=== PATIENT | female | born 1995 | race Caucasian/White ===

== ENCOUNTER → 2019-10-25 17:20 | Observation (INO) ==
[2019-10-25 15:56] LABS: Bilirubin,Urine Negative (Negative); Blood,Urine Moderate (Negative); Clarity,Urine Clear (Clear); Color,Urine Yellow (Yellow); Glucose,Urine (UA) Normal (Normal); Ketones,Urine 40 mg/dL (Negative); Leukocyte Esterase,Urine Negative (Negative); Nitrite,Urine Negative (Negative); Protein,Urine Negative (Neg-Trace); Specific Gravity,Urine 1.019 (1.010-1.025); Urobilinogen,Urine Normal (Normal)
[2019-10-25 15:59] LABS: Bacteria,Urine None Seen per hpf (None-Few); Hyaline Casts,Urine None Seen per lpf (None-Few); Squamous Epithelial Cell,Urine Moderate per lpf (None-Few); WBC,Urine 0-3 per hpf (0-3)
[2019-10-25 16:31] LABS: Candida DNA DETECTED (Not Detect); Gardnerella DNA Not Detected (Not Detect); Trichomonas DNA Not Detected (Not Detect)
== END | disposition home or self-care (01) ==
LOC: 1NENULAB
PROVIDERS: ADMIT Obstetrics & Gynecology; ATTEND Obstetrics & Gynecology

== ENCOUNTER → 2020-04-20 18:15 | Observation (INO) | END | disposition home or self-care (01) | LOC: 1NENULAB | PROVIDERS: ADMIT Obstetrics & Gynecology; ATTEND Obstetrics & Gynecology ==

== ENCOUNTER 2020-04-27 04:00 | Inpatient (IN) ==
[2020-04-27] MEDS ORDERED: miSOPROStoL 25 MCG TABLET VG PRN (04:13)
[2020-04-27] MEDS ORDERED: Ondansetron 4 MG/2 ML VIAL IVP PRN (04:13)
[2020-04-27] MEDS ORDERED: Lidocaine 1% 20 ML MDV INFILT PRN (04:13)
[2020-04-27] MEDS ORDERED: Famotidine 20 MG/2 ML VIAL IVP PRN (04:13)
[2020-04-27] MEDS ORDERED: Metoclopramide 10 MG/2 ML VIAL IVP PRN (04:13)
[2020-04-27] MEDS ORDERED: Naloxone 0.4 MG/ML INJ IVP PRN (04:13)
[2020-04-27] MEDS ORDERED: *HR* FentaNYL (PF) 100 MCG/2 ML VIAL IVP PRN (04:13)
[2020-04-27] MEDS ORDERED: EPHEDrine 50 MG/ML VIAL IVP PRN (04:51)
[2020-04-27 04:58] LABS: Basophils # 0.1 K/mcL (0.0-0.2); Basophils % 0.7 %; Eosinophils # 0.3 K/mcL (0.0-0.6); Eosinophils % 2.9 %; Hematocrit 36.7 % (35.3-44.9); Hemoglobin 12.5 g/dL (11.5-15.4); Immature Granulocytes % 0.5 % (0-4); Lymphocytes # 3.2 K/mcL (0.6-4.6); Lymphocytes % 31.3 %; Mean Corpuscular HGB Conc 34.1 g/dL (31.6-35.5); Mean Platelet Volume 10.5 fL (9.4-12.4); Monocytes # 0.8 K/mcL (0.0-1.3); Monocytes % 7.9 %; Neutrophils # 5.8 K/mcL (1.6-8.9); Platelet Count 195 K/mcL (140-400); Red Blood Count 4.17 M/mcL (3.82-4.97); Red Cell Distribution Width 12.4 % (11.5-14.5); Segmented Neutrophils % 56.7 %; White Blood Count 10.2 K/mcL (4.3-11.1)
[2020-04-27] MEDS ORDERED: Epidural Premix (fent/bupiv) 110 ML EP SCH (05:00)
[2020-04-27 05:04] LABS: Amphetamine Screen,Urine Negative ng/mL (Cutoff=1000); Barbiturate Screen,Urine Negative ng/mL (Cutoff=200); Benzodiazepines Screen,Urine Negative ng/mL (Cutoff=200); Cannabinoid Screen,Urine Negative ng/mL (Cutoff = 50); Cocaine Screen,Urine Negative ng/mL (Cutoff= 300); Opiate Screen,Urine Negative ng/mL (Cutoff=300); Phencyclidine Screen,Urine Negative ng/mL (Cutoff=25)
[2020-04-27] MEDS ORDERED: Oxytocin 20 units/ LR 1000 mL 20 UNIT/1,000 ML BAG IVC SCH ×2 (09:30→21:09)
[2020-04-27] MEDS: Ringers Solution, Lactated 1,000 ML IVC SCH ×2 (09:40→12:42)
[2020-04-27] MEDS ORDERED: Ropivacaine/PF 0.2% 20 ML VIAL EP ONE (11:57)
[2020-04-27] MEDS ORDERED: *HR* FentaNYL (PF) 100 MCG/2 ML VIAL EP ONE (11:57)
[2020-04-27] MEDS ORDERED: Bupivacaine-MPF 0.25% 10 ML VIAL ONE (12:51)
[2020-04-27] MEDS ORDERED: Acetaminophen 325 MG TABLET PO PRN (21:09)
[2020-04-27] MEDS ORDERED: Measles/Mumps/Rubella Vacc 0.5 ML VIAL SQ PRN (21:09)
[2020-04-27] MEDS: Ibuprofen 600 MG TABLET PO PRN (21:35)
[2020-04-28] MEDS: Ibuprofen 600 MG TABLET PO PRN (08:12)
[2020-04-28 08:25] LABS: Basophils # 0.1 K/mcL (0.0-0.2); Basophils % 0.4 %; Eosinophils # 0.1 K/mcL (0.0-0.6); Eosinophils % 0.6 %; Hemoglobin 11.9 g/dL (11.5-15.4); Immature Granulocytes % 0.5 % (0-4); Lymphocytes % 14.4 %; Mean Corpuscular Hemoglobin 30.6 pg (28.0-33.3); Mean Platelet Volume 10.6 fL (9.4-12.4); Monocytes % 6.9 %; Neutrophils # 10.8 K/mcL (1.6-8.9); Platelet Count 171 K/mcL (140-400); Red Blood Count 3.89 M/mcL (3.82-4.97); Red Cell Distribution Width 12.4 % (11.5-14.5); Segmented Neutrophils % 77.2 %
[2020-04-28] MEDS ORDERED: Prenatal Vit/FA 1 EACH TABLET PO SCH (09:00)
[2020-04-28] MEDS ORDERED: [UNRECOGNIZED DRUG - OTHER] PO SCH (09:00)
[2020-04-28 15:54] VITALS: BP 94/54
== END 2020-04-28 19:00 | disposition home or self-care (01) | DRG 807 ==
LOC: 1NENULAB 04:11 → 1NENUOBS 20:50
PROVIDERS: ADMIT Obstetrics & Gynecology; ATTEND Obstetrics & Gynecology

== ENCOUNTER 2021-09-26 04:00 | Inpatient (IN) ==
[2021-09-26] MEDS ORDERED: Metoclopramide 10 MG/2 ML VIAL IVP PRN (04:08)
[2021-09-26] MEDS ORDERED: Famotidine 20 MG/2 ML VIAL IVP PRN (04:08)
[2021-09-26] MEDS ORDERED: Naloxone 0.4 MG/ML INJ IVP PRN (04:08)
[2021-09-26] MEDS ORDERED: Oxytocin 20 units/ LR 1000 mL 20 UNIT/1,000 ML BAG IVC SCH (04:15)
[2021-09-26] MEDS ORDERED: Ringers Solution, Lactated 1,000 ML IVC SCH (04:15)
[2021-09-26 04:55] LABS: Amphetamine Screen,Urine Negative ng/mL (Cutoff=1000); Barbiturate Screen,Urine Negative ng/mL (Cutoff=200); Benzodiazepines Screen,Urine Negative ng/mL (Cutoff=200); Cannabinoid Screen,Urine Negative ng/mL (Cutoff = 50); Cocaine Screen,Urine Negative ng/mL (Cutoff= 300); Opiate Screen,Urine Negative ng/mL (Cutoff=300); Phencyclidine Screen,Urine Negative ng/mL (Cutoff=25)
[2021-09-26 04:58] VITALS: BP 125/79; PULSE 96; TEMP 98
[2021-09-26 05:01] LABS: Basophils # 0.1 K/mcL (0.0-0.2); Basophils % 0.6 %; Eosinophils # 0.2 K/mcL (0.0-0.6); Eosinophils % 1.6 %; Hematocrit 36.4 % (35.3-44.9); Hemoglobin 11.7 g/dL (11.5-15.4); Immature Granulocytes % 0.5 % (0-4); Lymphocytes # 3.9 K/mcL (0.6-4.6); Lymphocytes % 35.7 %; Mean Corpuscular HGB Conc 32.1 g/dL (31.6-35.5); Mean Corpuscular Hemoglobin 26.3 pg (28.0-33.3); Mean Corpuscular Volume 81.8 fL (83.0-100.0); Mean Platelet Volume 10.3 fL (9.4-12.4); Monocytes # 0.7 K/mcL (0.0-1.3); Monocytes % 6.7 %; Platelet Count 273 K/mcL (140-400); Red Blood Count 4.45 M/mcL (3.82-4.97); Red Cell Distribution Width 12.9 % (11.5-14.5); Segmented Neutrophils % 54.9 %
[2021-09-26 05:17] LABS: Influenza A PCR Negative (Negative); Influenza B PCR Negative (Negative); Resp. Syncytial Virus PCR Negative (Negative)
[2021-09-26 05:19] LABS: SARS-CoV-2 by PCR (In House) Positive (Negative)
== END 2021-09-26 05:36 | disposition other institution (70) | DRG 179 ==
LOC: 1NENULAB 04:00
PROVIDERS: ADMIT Obstetrics & Gynecology; ATTEND Obstetrics & Gynecology

== ENCOUNTER 2021-09-26 15:45 | Inpatient (IN) ==
[2021-09-26] MEDS ORDERED: *HR* Nalbuphine 10 MG/ML AMPUL IV PRN (17:00)
[2021-09-26] MEDS ORDERED: Famotidine 20 MG/2 ML VIAL IVP PRN (17:00)
[2021-09-26] MEDS ORDERED: Metoclopramide 10 MG/2 ML VIAL IVP PRN (17:00)
[2021-09-26] MEDS ORDERED: Naloxone 0.4 MG/ML INJ IVP PRN (17:00)
[2021-09-26] MEDS ORDERED: Ringers Solution, Lactated 1,000 ML IVC SCH (17:00)
[2021-09-26] MEDS ORDERED: EPHEDrine 50 MG/ML VIAL IVP PRN (17:07)
[2021-09-26] MEDS ORDERED: Epidural Premix (fent/bupiv) 110 ML EP SCH (17:15)
[2021-09-26] MEDS ORDERED: miSOPROStoL 25 MCG TABLET PO PRN (17:47)
[2021-09-26 17:58] LABS: Amphetamine Screen,Urine Negative ng/mL (Cutoff=1000); Barbiturate Screen,Urine Negative ng/mL (Cutoff=200); Benzodiazepines Screen,Urine Negative ng/mL (Cutoff=200); Cannabinoid Screen,Urine Negative ng/mL (Cutoff = 50); Cocaine Screen,Urine Negative ng/mL (Cutoff= 300); Opiate Screen,Urine Negative ng/mL (Cutoff=300); Phencyclidine Screen,Urine Negative ng/mL (Cutoff=25)
[2021-09-26] MEDS ORDERED: Oxytocin 20 units/ LR 1000 mL 20 UNIT/1,000 ML BAG IVC SCH (18:00)
[2021-09-27] MEDS ORDERED: Measles/Mumps/Rubella Vacc 0.5 ML VIAL SQ PRN (06:06)
[2021-09-27] MEDS ORDERED: Lanolin 7 G OINT...G. TP PRN (06:06)
[2021-09-27] MEDS ORDERED: Ondansetron ODT 4 MG TAB.RAPDIS SL PRN (06:06)
[2021-09-27] MEDS ORDERED: Oxytocin 20 units/ LR 1000 mL 20 UNIT/1,000 ML BAG IVC SCH (06:06)
[2021-09-27] MEDS ORDERED: Benzocaine/Menthol 56 GM AEROSOL SPRAY TP PRN (06:06)
[2021-09-27] MEDS: Ibuprofen 600 MG TABLET PO SCH ×2 (06:29→18:05)
[2021-09-27] MEDS: Prenatal Vit/FA 1 EACH TABLET PO SCH (07:50)
[2021-09-27] MEDS: Acetaminophen 325 MG TABLET PO SCH ×2 (07:50→18:04)
[2021-09-27] MEDS ORDERED: NON-FORMULARY MEDICATION 1 EACH EACH (Prenatal Vit/Fa [Prenatal Vit/Fa] 1 EACH Tablet) PO SCH (09:00)
[2021-09-28] MEDS: Acetaminophen 325 MG TABLET PO SCH (02:02)
[2021-09-28] MEDS: Ibuprofen 600 MG TABLET PO SCH (02:02)
[2021-09-28 04:13] LABS: Basophils # 0.1 K/mcL (0.0-0.2); Basophils % 0.4 %; Eosinophils # 0.1 K/mcL (0.0-0.6); Hematocrit 34.3 % (35.3-44.9); Hemoglobin 10.8 g/dL (11.5-15.4); Immature Granulocytes % 0.6 % (0-4); Lymphocytes # 3.9 K/mcL (0.6-4.6); Lymphocytes % 31.1 %; Mean Corpuscular HGB Conc 31.5 g/dL (31.6-35.5); Mean Corpuscular Volume 82.7 fL (83.0-100.0); Mean Platelet Volume 10.1 fL (9.4-12.4); Monocytes # 0.7 K/mcL (0.0-1.3); Monocytes % 5.7 %; Neutrophils # 7.6 K/mcL (1.6-8.9); Platelet Count 238 K/mcL (140-400); Red Blood Count 4.15 M/mcL (3.82-4.97); Red Cell Distribution Width 13.2 % (11.5-14.5); Segmented Neutrophils % 61.2 %; White Blood Count 12.4 K/mcL (4.3-11.1)
[2021-09-28 07:35] VITALS: BP 128/78; PULSE 54; TEMP 97.5; O2SAT 99
[2021-09-28] MEDS: Prenatal Vit/FA 1 EACH TABLET PO SCH (08:45)
== END 2021-09-28 12:15 | disposition home or self-care (01) | DRG 805 ==
LOC: 1NENULAB 15:45 → 1NENUOBS 09-27 06:05
PROVIDERS: ADMIT Obstetrics & Gynecology; ATTEND Obstetrics & Gynecology